=== PATIENT | male | born 1970 | race Two or more races ===

== ENCOUNTER 2025-01-05 13:22 | Emergency (ER) | payer BC, SELFPAY ==
[2025-01-05 13:52] VITALS: BP 128/81; PULSE 87; RESP 18; TEMP 36.6; O2SAT 99
--- NOTE | 2025-01-05 13:52 | EDNOTE_ITS ---
<Statement entered by Maria Guadalupe Noyola MD - 01/05/25 17:51> As co-signing physician, I was present and available for consult prn. I concur with the plan and care as documented by the midlevel provider. ED General RME/HPI General Chief complaint: Abdominal Pain Stated complaint: UPPER ABD PAIN RADIATING DOWN THE R) SIDE OF ABD Time Seen by Provider: 01/05/25 13:40 Arrival date/time: 01/05/25 13:22 CC: Epigastric and right upper quadrant abdominal pain HPI single episode yesterday lasting approximately 30 to 40 seconds with sharp pain radiating to the right side no prior history of similar events is a diabetic managing his blood sugars. Patient denies this occurrence after a meal. He had not eaten anything at the time of the incident. He has not been repeated. Patient has no other complaints today including nausea vomiting chest pain shortness of breath or difficulty breathing. Related Data Allergies Allergy/AdvReac Type Severity Reaction Status Date / Time No Known Allergies Allergy Verified 01/05/25 13:26 Review of Systems Review of Systems Narrative Review of Systems: GEN: No fever, no chills, no weight loss EYES: No discharge, no visual changes, no pain HEENT: No ear pain, no congestion, no sore throat PULM: No shortness of breath, no cough, no congestion CV: No chest pain, no dyspnea on exertion, no palpitations GI: No nausea, no vomiting, no diarrhea, + pain, no constipation : No frequency, no urgency, no dysuria MUSC/SKEL: No joint pain, no back pain SKIN: No rash PSYCH: No hallucinations, no depression HEME/LYMPH: No easy bleeding or bruising tendencies NEURO: No weakness, no headache Past Medical History Social History SMOKING STATUS: Former smoker ED Exam Narrative Physical exam: [General: Not in any acute distress Head normocephalic HEENT: Within acceptable limits Neck is supple nontender Chest equal chest rise nontender to palpation Respiratory: Clear to auscultation no wheezes crackles or rubs CV: Rate rhythm is regular no murmurs rubs or clicks Abdomen is soft nontender no masses positive bowel sounds all 4 quadrants Back: No CVA tenderness no spinous process tenderness from cervical spine thoracic and lumbar spine Skin: Intact no petechiae rash induration ulceration or crepitus Extremities: Moving all extremity against resistance cap refill less than 2 seconds neurosensory intact Neuro: Awake alert oriented x3 Glascow coma 15 no focal deficits] Course Quality Measures none Orders Category Date Time Status US gall bladder Stat Exams 01/05/25 13:53 Taken CBC Stat Lab 01/05/25 13:57 Completed CMP [Comprehensive Metabolic Panel] Stat Lab 01/05/25 13:57 Completed Vital Signs Vital signs: Vital Signs Temperature 98 F 01/05/25 13:52 Pulse Rate 87 01/05/25 13:52 Respiratory Rate 18 01/05/25 13:52 Blood Pressure 128/81 01/05/25 13:52 Pulse Oximetry (%) 99 01/05/25 13:52 Oxygen Delivery Method Room Air 01/05/25 13:52 [facility] Patient data External records reviewed:: [facility] previous records Clinical information provided by:: patient Social determinants that could affect healthcare access:: none Patient has the following chronic illnesses:: Diabetes How is presenting disease/condition affected by chronic disease/condition?: u neffected by Evaluation data The following diagnostics were reviewed and interpreted by me:: lab results and radiology exam(s) Lab and/or radiology exams considered but not ordered:: CBC shows no acute leukocytosis anemia thrombocytopenia CMP shows no acute electrolyte imbalances renal impairment transaminitis or T. bili elevation Gallbladder is normal. Interpretation Summary: Not sure what the exact source of the pain is however it was brief in nature there is no acute finding specifically the gallbladder is normal with no sludge or stones. Medications Medications considered but not ordered:: None Medication administrations:: None Consultations Consultation(s) initiated? (list below): No Diagnosis Differential Diagnosis ED Complaint MDM: Cholelithiasis gastritis cholecystitis choledocholithiasis pancreatitis Most likely diagnosis given after review of the tests above:: Epigastric pain Admission Indicated Admission indicated?: not indicated Explain why admission is indicated or not indicated:: Stable for outpatient follow-up Admission Request Was there a request for admission?: No Disposition Plan Disposition Plan: Discharge Discharge Attestation Discharge Attestation: The patient and all family members were given an opportunity to ask questions and understood the discharge instructions. Discharge instructions specifically effects, indications for sooner follow up or return to the emergency department, and the expected course of current diagnosis. Patient condition: Stable Medical Decision Making Differential Diagnosis Differential Diagnosis: Cholelithiasis gastritis cholecystitis choledocholithiasis pancreatitis Lab Data 01/05/25 13:57 01/05/25 13:57 Labs: Lab Results 01/05/25 Range/Units 13:57 WBC 8.7 (3.8-10.6) Thou/mm3 RBC 5.06 (4.50-5.90) Miln/mm3 Hgb 15.0 (13.5-16.0) g/dL Hct 43.7 (41.0-53.0) % MCV 86 (80-100) fL MCH 29.6 (25.0-35.0) pg MCHC 34.3 (31.0-37.0) g/dl RDW Std Deviation 41.3 (35.1-43.9) fL Plt Count 282 (140-440) Thou/mm3 Neut % (Auto) 59 (37-80) % Lymph % (Auto) 30 (10-50) % [place] % (Auto) 10 (0-12) % Eos % (Auto) 1 (0-10) % Baso % (Auto) 0 (0-2.5) % Neut # (Auto) 5.1 (1.8-7.7) Thou/mm3 Lymph # (Auto) 2.6 (1.0-4.8) Thou/mm3 [place] # (Auto) 0.8 (0.0-0.8) Thou/mm3 Eos # (Auto) 0.1 (0.0-0.5) Thou/mm3 Baso # (Auto) 0.0 (0.0-0.2) Thou/mm3 Immature Gran # (Auto) 0.02 H (0.00-0.00) Thou/mm3 Absolute Nucleated RBC 0.00 (0.00-0.00) Thou/mm3 Immature Gran % 0 (0-0) % Nucleated RBC % 0 (0) /100 WBC Sodium 138 (136-145) mMol/L Potassium 4.2 (3.4-5.1) mMol/L Chloride 103 (98-107) mMol/L Carbon Dioxide 26.1 (20.0-31.0) mMol/L Anion Gap 9 (7-16) BUN 16 (9-23) mg/dL Creatinine 1.2 (0.6-1.3) mg/dL Estim Creat Clear Calc Not Performed. eGFR > 60 (60 - ) See Note BUN/Creatinine Ratio 13 (12-20) Ratio Glucose 116 H (74-106) mg/dL Calculated Osmolality 277 (275-295) Calcium 9.3 (8.3-10.6) mg/dL Corrected Calcium 9.3 (8.5-10.1) mg/dL Total Bilirubin 1.0 (0.3-1.2) mg/dL AST 46 H (0-34) U/L ALT 42 (10-49) U/L Alkaline Phosphatase 72 (46-116) U/L Total Protein 7.9 (5.7-8.2) gm/dL Albumin 4.8 (3.5-5.0) gm/dL Globulin 3.1 (2.3-3.5) gm/dL Albumin/Globulin Ratio 1.5 (1.2-2.2) Discharge Plan Plan Patient Disposition: HOME (Self Care) Patient condition on transfer: Stable Prescriptions/Referrals Referrals: Azeem Vazquez MD [Physician] - In 1 week No Primary/Family,Physician [Primary Care Provider] - In 1 week Problem List Clinical Impression: Epigastric pain Patient/Caregiver Discharge Instructions Education Materials: ED Epigastric Pain (Uncertain Cause) Additional Instructions: I am not sure where the pain come from the gallbladder ultrasound is normal, your blood work is normal. Please follow-up with your primary care doctor if there is worsening of the symptoms return immediately to the emergency room for reevaluation. Print Language: Polish Stand Alone Forms: Carmen Award Info., Work/School Release, Patient Portal Info Letter EDGAR/SYDNEE Supervising Physician EDGAR/SYDNEE Supervising Physician: Erik Frank ENP
--- NOTE | 2025-01-05 13:53 | XR_ITS ---
Examination: Abdomen sonogram, Limited Date and time of exam: January 05, 2025, 1407 hours INDICATIONS: Right upper abdominal pain, mid abdominal pain beginning today. Technique: Real-time reyes scale transabdominal sonographic images of the upper abdomen obtained. Findings: Contracted gallbladder, no gallstones Gallbladder wall 0.2 cm Common bile duct 0.2 cm Pancreatic head 3.0 cm Liver 12.9 cm fatty infiltration Normal hepatopedal portal venous flow Patent IVC. IMPRESSION: Negative for cholelithiasis, negative for cholecystitis Liver normal size, fatty infiltration
[2025-01-05 14:11] LABS: Basophils % (Auto) 0 % (0-2.5); Eosinophils # (Auto) 0.1 Thou/mm3 (0.0-0.5); Eosinophils % (Auto) 1 % (0-10); Hematocrit 43.7 % (41.0-53.0); Immature Granulocytes % (Auto) 0 % (0-0); Immature Granulocytes Auto 0.02 Thou/mm3 (0.00-0.00); Lymphocytes # (Auto) 2.6 Thou/mm3 (1.0-4.8); Lymphocytes % (Auto) 30 % (10-50); Mean Corpuscular HGB Conc 34.3 g/dl (31.0-37.0); Mean Corpuscular Hemoglobin 29.6 pg (25.0-35.0); Mean Corpuscular Volume 86 fL (80-100); Monocytes # (Auto) 0.8 Thou/mm3 (0.0-0.8); Monocytes % (Auto) 10 % (0-12); Neutrophils # (Auto) 5.1 Thou/mm3 (1.8-7.7); Neutrophils % (Auto) 59 % (37-80); Nucleated Red Blood Cell % 0 /100 WBC (0); Platelet Count 282 Thou/mm3 (140-440); RDW Standard Deviation 41.3 fL (35.1-43.9); Red Blood Count 5.06 Miln/mm3 (4.50-5.90); White Blood Count 8.7 Thou/mm3 (3.8-10.6)
[2025-01-05 14:37] LABS: Alanine Aminotransferase 42 U/L (10-49); Albumin, Serum 4.8 gm/dL (3.5-5.0); Albumin/Globulin Ratio 1.5 (1.2-2.2); Alkaline Phosphatase 72 U/L (46-116); Anion Gap 9 (7-16); Aspartate Amino Transferase 46 U/L (0-34); BUN/Creatinine Ratio 13 Ratio (12-20); Blood Urea Nitrogen 16 mg/dL (9-23); Calcium 9.3 mg/dL (8.3-10.6); Calcium (Corrected) 9.3 mg/dL (8.5-10.1); Carbon Dioxide 26.1 mMol/L (20.0-31.0); Chloride 103 mMol/L (98-107); Creatinine (Component) 1.2 mg/dL (0.6-1.3); Globulin 3.1 gm/dL (2.3-3.5); Glucose 116 mg/dL (74-106); Osmolality,Calculated 277 (275-295); Potassium 4.2 mMol/L (3.4-5.1); Sodium 138 mMol/L (136-145); Total Protein 7.9 gm/dL (5.7-8.2); eGFR > 60 See Note
== END 2025-01-05 15:19 | disposition home or self-care (01) ==
PROVIDERS: Registered Nurse General Practice; Emergency Provider Emergency Medicine
DX: R10.13 Epigastric pain (principal); R10.11 Right upper quadrant pain
CPT/HCPCS: 36415; 76705; 80053; 85025; 99284

== ENCOUNTER 2025-01-16 20:30 | Emergency (ER) | payer BC, SELFPAY ==
[2025-01-16 20:31] VITALS: BMI 30.4
--- NOTE | 2025-01-16 20:42 | EKG_ITS ---
[facility] Test Date: 2025-01-16 Pat Name: ALMAZ NUÑEZ Department: Room: - Gender: Male Facing Grinder: : 1970 Requested By: Aiden Mata Order Number: [id number] Reading MD: Aiden Mata Measurements Intervals [place] Rate: 88 P: 8 WV: 120 QRS: -22 QRSD: 118 T: 23 QT: 367 QTc: 446 Interpretive Statements SINUS RHYTHM BORDERLINE LEFT AXIS DEVIATION [QRS AXIS < -20] MODERATE INTRAVENTRICULAR CONDUCTION DELAY [110+ ms QRS DURATION] MODERATE VOLTAGE CRITERIA FOR LVH, CONSIDER NORMAL VARIANT [MEETS CRITERIA IN ONE OF: R(aVL), S(V1), R(V5), R(V5/V6)+S(V1)] No previous ECG available for comparison /store/S0/[id number]/ecg/[id number].pdf
[2025-01-16 20:57] VITALS: BP 157/98; PULSE 90; RESP 18; TEMP 36.6; O2SAT 97
--- NOTE | 2025-01-16 21:09 | XR_ITS ---
Examination: PA chest single view Technique: Upright PA chest single view Exam date and time: January 16, 20253 hrs. Indications: Chest pain today. Findings: Normal heart size. Lungs are clear. The osseous structures are intact Impression: No active disease
--- NOTE | 2025-01-16 21:09 | PD.EDRME ---
Rapid Medical Screening Exam E Arrival date/time: 01/16/25 20:30 54M with history of anxiety (was on Ativan for 19 years; stopped changed to Buspar 2 months ago) presents to ED with 5 months of intermittent CP, SOB, numbness, and muscle tightness. Patient has initial cardiology appt later this month. Patient works with manual labor. Chief Complaint: Chest Pain Vital signs: Vital Signs Temperature 98 F 01/16/25 20:57 Pulse Rate 90 01/16/25 20:57 Respiratory Rate 18 01/16/25 20:57 Blood Pressure 157/98 H 01/16/25 20:57 Pulse Oximetry (%) 97 01/16/25 20:57 Oxygen Delivery Method Room Air 01/16/25 20:57
[2025-01-16] MEDS: DIAZEPAM 5 MG TABLET PO (21:32)
[2025-01-16 21:36] LABS: Basophils % (Auto) 0 % (0-2.5); Eosinophils # (Auto) 0.1 Thou/mm3 (0.0-0.5); Eosinophils % (Auto) 1 % (0-10); Hemoglobin 15.2 g/dL (13.5-16.0); Immature Granulocytes % (Auto) 0 % (0-0); Immature Granulocytes Auto 0.03 Thou/mm3 (0.00-0.00); Lymphocytes # (Auto) 1.7 Thou/mm3 (1.0-4.8); Lymphocytes % (Auto) 21 % (10-50); Mean Corpuscular HGB Conc 35.3 g/dl (31.0-37.0); Mean Corpuscular Hemoglobin 29.7 pg (25.0-35.0); Mean Corpuscular Volume 84 fL (80-100); Monocytes # (Auto) 1.1 Thou/mm3 (0.0-0.8); Monocytes % (Auto) 13 % (0-12); Neutrophils # (Auto) 5.1 Thou/mm3 (1.8-7.7); Neutrophils % (Auto) 64 % (37-80); Nucleated Red Blood Cell % 0 /100 WBC (0); Platelet Count 253 Thou/mm3 (140-440); RDW Standard Deviation 40.9 fL (35.1-43.9); Red Blood Count 5.11 Miln/mm3 (4.50-5.90)
[2025-01-16 21:54] LABS: Alanine Aminotransferase 46 U/L (10-49); Albumin, Serum 4.8 gm/dL (3.5-5.0); Albumin/Globulin Ratio 1.5 (1.2-2.2); Alkaline Phosphatase 68 U/L (46-116); Anion Gap 12 (7-16); Aspartate Amino Transferase 32 U/L (0-34); BUN/Creatinine Ratio 13 Ratio (12-20); Bilirubin,Total 1.6 mg/dL (0.3-1.2); Blood Urea Nitrogen 13 mg/dL (9-23); Calcium 10.1 mg/dL (8.3-10.6); Calcium (Corrected) 10.1 mg/dL (8.5-10.1); Carbon Dioxide 24.3 mMol/L (20.0-31.0); Chloride 101 mMol/L (98-107); Estimated Creatinine Clearance 94.5 mL/min (>60); Globulin 3.2 gm/dL (2.3-3.5); Glucose 101 mg/dL (74-106); Osmolality,Calculated 273 (275-295); Potassium 3.8 mMol/L (3.4-5.1); Sodium 137 mMol/L (136-145); Troponin I < 0.002 ng/mL (0.0-0.045); eGFR > 60 See Note
[2025-01-16 23:13] VITALS: BP 140/81; PULSE 83; RESP 18; TEMP 36.5; O2SAT 99
[2025-01-17 00:05] LABS: Amphetamine/Methamp Scrn,U Negative (Negative); Barbiturate Screen,Urine Negative (Negative); Benzodiazepines Screen,Urine Negative (Negative); Benzoylecgonine Screen, Ur Negative (Negative); Fentanyl Screen,Urine Negative (Negative); Opiate Screen,Urine Negative (Negative); THC Screen,Urine Negative (Negative)
--- NOTE | 2025-01-17 03:21 | EDNOTE_ITS ---
ED Anxiety RME/HPI General Chief Complaint: Chest Pain Stated Complaint: CHEST PAIN X 5MONTHS Time Seen by Provider: 01/17/25 03:21 Arrival date/time: 01/16/25 20:30 54M with history of anxiety (was on Ativan for 19 years; stopped changed to Buspar 2 months ago) presents to ED with 5 months of intermittent CP, SOB, numbness, and muscle tightness. Patient has initial cardiology appt later this month. Patient works with manual labor. Limitations: no limitations RME / HPI RME / HPI narrative: 01/16/25 20:30 54M with history of anxiety (was on Ativan for 19 years; stopped changed to Buspar 2 months ago) presents to ED with 5 months of intermittent CP, SOB, numbness, and muscle tightness. Patient has initial cardiology appt later this month. Patient works with manual labor. Related Data Allergies Allergy/AdvReac Type Severity Reaction Status Date / Time No Known Allergies Allergy Verified 01/05/25 13:26 Review of Systems Review of Systems Systems Reviewed: All systems reviewed, normal except as documented Constitutional Constitutional: Reports system reviewed and no additional complaints, except as documented, Denies fever(s) and Denies headache(s) ENT Ears, Nose, Mouth, and Throat: Denies disequilibrium and Denies headache(s) Cardiovascular Cardiovascular: Reports system reviewed and no additional complaints, except as documented, Reports as per HPI, Reports chest pain and Reports dyspnea Respiratory Respiratory: Reports system reviewed and no additional complaints, except as documented, Denies cough and Reports dyspnea Gastrointestinal Gastrointestinal: Reports system reviewed and no additional complaints, except as documented, Denies abdominal pain, Denies nausea and Denies vomiting Musculoskeletal Musculoskeletal: Reports as per HPI, Reports muscle cramps and Reports numbness Neurologic Neurologic: Reports system reviewed and no additional complaints, except as documented, Reports as per HPI, Denies confusion, Denies disequilibrium, Denies headache(s) and Reports numbness Psychiatric Psychiatric: Denies confusion Past Medical History Social History SMOKING STATUS: Never smoker ED Exam General Limitations: Present no limitations General appearance: Present alert, in no apparent distress and anxious Head Head exam: Present atraumatic Eye Eye exam: Present normal appearance, PERRL and EOMI ENT ENT exam: Present normal exam, normal oropharynx and mucous membranes moist Neck Neck exam: Present normal inspection, full ROM and trachea midline Chest Chest inspection: Present normal inspection and symmetric chest wall rise Respiratory Respiratory exam: Present normal lung sounds bilaterally Cardiovascular Cardiovascular exam: Present regular rate, normal rhythm and normal heart sounds Abdominal Exam Abdominal exam: Present soft and normal bowel sounds Extremities Exam Extremities exam: Present normal inspection and full ROM Back Exam Back exam: Present normal inspection and full ROM Neurological Exam Neurological exam: Present alert, oriented X3 and CN II-XII intact Psychiatric Psychiatric exam: Present normal affect and normal mood Skin Skin exam: Present warm, dry, intact and normal color Course Quality Measures none Orders Category Date Time Status EKG (ED ONLY) *Do not use* NOW Care 01/16/25 20:42 Completed EKG (ED Only) Stat Exams 01/16/25 20:42 Draft XR chest 1V portable Stat Exams 01/16/25 21:09 Completed CBC Stat Lab 01/16/25 21:21 Completed Comprehensive Metabolic Panel Stat Lab 01/16/25 21:21 Completed Drug Screen,Urine Stat Lab 01/16/25 21:47 Completed Troponin I Stat Lab 01/16/25 21:21 Completed Diazepam [Valium] Med 01/16/25 21:09 Discontinued 5 mg PO X1 ONE Vital Signs Vital signs: Vital Signs Temperature 98 F 01/16/25 20:57 Pulse Rate 90 01/16/25 20:57 Respiratory Rate 18 01/16/25 20:57 Blood Pressure 157/98 H 01/16/25 20:57 Pulse Oximetry (%) 97 01/16/25 20:57 Oxygen Delivery Method Room Air 01/16/25 20:57 Anxiety MDM Narrative MDM Narrative: 54M with history of anxiety (was on Ativan for 19 years; stopped changed to Buspar 2 months ago) presents to ED with 5 months of intermittent CP, SOB, numbness, and muscle tightness. Patient has initial cardiology appt later this month. Patient works with manual labor. Physical exam reveals clear lungs. Normal WOB. RRR. Patient is afebrile, alert, but anxious. EKG is NSR. CXR normal. Normal trop. CMP unremarkable. Valium improved symptoms. Patient data External records reviewed:: [facility] previous records Clinical information provided by:: patient Social determinants that could affect healthcare access:: mental health Patient has the following chronic illnesses:: anxiety How is presenting disease/condition affected by chronic disease/condition?: exacerbated by Evaluation data The following diagnostics were reviewed and interpreted by me:: lab results, radiology exam(s) and EKG tracing(s) Lab and/or radiology exams considered but not ordered:: ordered Interpretation Summary: above Medications / Prescriptions Medications or Prescriptions considered but not ordered:: ordered Medication administrations:: Medication Administration History Discontinued Medications Diazepam (Diazepam 5 Mg Tablet) 5 mg PO X1 ONE Stop: 01/16/25 21:10 Last Admin: 01/16/25 21:32 Dose: 5 mg Documented By: Consultations Consultation(s) initiated? (list below): No Diagnosis Differential diagnosis anxiety: hyperventilation, panic disorder, acute anxiety and other (ACS) Most likely diagnosis given after review of the tests above:: anxiety Admission Indicated Admission indicated?: not indicated Admission Request Was there a request for admission?: No Disposition Plan Disposition Plan: Discharge Discharge Attestation Discharge Attestation: The patient and all family members were given an opportunity to ask questions and understood the discharge instructions. Discharge instructions specifically effects, indications for sooner follow up or return to the emergency department, and the expected course of current diagnosis. Patient condition: Stable Discharge Plan Plan Patient Disposition: HOME (Self Care) Disposition Comment: Stable Prescriptions/Referrals Referrals: No Primary/Family,Physician [Primary Care Provider] - In 1 week Problem List Clinical Impression: Anxiety Patient/Caregiver Discharge Instructions Education Materials: Your Body's Response to Anxiety Additional Instructions: Please follow-up with PCP within 24-48 hours and return immediately if symptoms worsen. If Buspar is not working, ask PCP about other anxiety meds. Still go to cardiology appt. Print Language: Polish Stand Alone Forms: Patient Portal Info Letter EDGAR/SYDNEE Supervising Physician DORIAN Supervising Physician: Dr. Lowe
[2025-01-17 03:23] VITALS: BP 151/85; PULSE 81; RESP 18; TEMP 36.8; O2SAT 99
== END 2025-01-17 03:25 | disposition home or self-care (01) ==
PROVIDERS: Physician Assistant; Emergency Provider Emergency Medicine
DX: F41.9 Anxiety disorder, unspecified (principal); R07.9 Chest pain, unspecified
CPT/HCPCS: 36415; 71045; 80053; 80307; 84484; 85025; 93005; 99283; A9270